=== PATIENT | female | born 1955 | race Caucasian/White ===

== ENCOUNTER → 2020-03-02 | Outpatient (CLI) | payer MEDICARE ==
--- NOTE | 2020-03-07 16:15 | RAD ---
EXAM: BILATERAL DIGITAL 3D SCREENING MAMMOGRAPHY. HISTORY: Routine mammographic screening. TECHNIQUE: Bilateral digital 3D and tomographic images were obtained in CC and MLO projections. Computer-aided detection was applied. COMPARISON: 10/26/2015. COMPOSITION: A. The breasts are almost entirely fatty. FINDINGS: There are multiple small circumscribed and partially obscured nodules bilaterally. One on each side is new. See annotations. These are located laterally and inferiorly on the right, and medially and inferiorly on the left. Scattered calcifications are benign. BI-RADS CATEGORY 0: Incomplete--Needs Additional Imaging Evaluation. RECOMMENDATION: 1. Sonography of new nodules inferolaterally on the right and inferomedially on the left. See annotations. Electronically signed by: Jose Ramon Mccarthy MD (03/07/2020 4:12 PM) [id number]
== END | disposition home or self-care (01) ==
LOC: MAMMO 13:02
PROVIDERS: ATTEND Family Medicine
DX: Z12.31 Encounter for screening mammogram for malignant neoplasm of breast (principal); N63.20 Unspecified lump in the left breast, unspecified quadrant; N63.10 Unspecified lump in the right breast, unspecified quadrant
CPT/HCPCS: 77063; 77067

== ENCOUNTER → 2020-03-20 | Outpatient (CLI) | payer MEDICARE ==
--- NOTE | 2020-03-20 13:56 | RAD ---
Examination: Bilateral Limited breast ultrasound INDICATION: Bilateral screening recall for developing nodularity. COMPARISON: 03/02/2020 bilateral mammogram TECHNIQUE: Grayscale and color Doppler imaging of the bilateral breasts including sonographic survey of the retroareolar breast and axilla was performed. FINDINGS: The lower outer right breast was surveyed sonographically with images acquired between the 6 and 9:00 positions. This revealed no suspicious sonographic findings or definite sonographic correlate to the area of developing nodularity in the right breast. Right retroareolar region and axilla were unremarkable. Sonographic survey left breast showed a sonographically benign 7 mm cyst at the 6:00 position 2 cm from the nipple that likely correlates with the developing nodularity identified on screening. No suspicious sonographic findings in the left breast. The subareolar and the left axilla regions were unremarkable. IMPRESSION: Benign findings on bilateral targeted breast ultrasound. No evidence of malignancy. Recommend return to routine screening next due in one year. BI-RADS Category 2 Benign Patient entered into a reminder system with target due date for next mammogram.
== END | disposition home or self-care (01) ==
LOC: US 12:56
PROVIDERS: ATTEND Family Medicine
DX: R92.8 Other abnormal and inconclusive findings on diagnostic imaging of breast (principal); N60.02 Solitary cyst of left breast; N63.23 Unspecified lump in the left breast, lower outer quadrant
CPT/HCPCS: 76641